=== PATIENT | female | born 1955 | race Caucasian/White ===

== ENCOUNTER → 2017-02-23 | Outpatient (CLI) | payer BC ==
[~2017-02-23] MED LIST: ACTOS 15MG TAB15 MG PO; ESTRACE; FLEXERIL; GLYBURIDE MICRON3 MG PO; IBU600 MG PO; LANTUS100 U/ML SC; METFORMIN HCL850 MG PO; NORCO 325 MG-51 TAB PO; PROZAC 20MG20 MG PO; TUSS PO; ZITHROMAX Z PA250 MG PO; ZOFRAN 4MG T4 MG/TAB PO
== END ==
LOC: COL.RAD 07:09
DX: K30 Functional dyspepsia (principal)
CPT/HCPCS: A9541